=== PATIENT | female | born 1990 | race Caucasian/White ===

== ENCOUNTER 2017-03-30 04:28 | Inpatient (IN) | payer BC, MEDICAID ==
[2017-03-30] MEDS ORDERED: Nalbuphine* 20 MG/ML 1 ML VIAL IV ONE (06:27)
[2017-03-30] MEDS ORDERED: Promethazine INJ(RESTRICTED)* 25 MG/ML 1 ML VIAL IV ONE (06:28)
[2017-03-30] MEDS ORDERED: Nalbuphine* 20 MG/ML 1 ML VIAL ONE (06:29)
[2017-03-30] MEDS ORDERED: Promethazine INJ(RESTRICTED)* 25 MG/ML 1 ML VIAL ONE (06:29)
[2017-03-30 06:38] LABS: ABS Basophils 0.1 10^3/ul (0-0.2); ABS Eosinophils 0.1 10^3/ul (0-0.6); ABS Lymphocytes 1.4 10^3/ul (1.0-4.8); ABS Monocytes 1.1 10^3/ul (0-0.8); ABS Neutrophils 15.2 10^3/ul (1.5-7.7); ABS Nucleated RBC 0 10^3/ul; Eosinophil % 0.3 % (0-6); Hematocrit 36 % (35-47); Hemoglobin 11.7 g/dl (12.0-16.0); Lymphocyte % 7.7 % (25-47); Mean Corpuscular HGB Conc 33 g/dl (31-36); Mean Corpuscular Hemoglobin 26 pg (27-31); Mean Corpuscular Volume 80 fL (80-97); Mean Platelet Volume 9 um3 (7.4-10.4); Nucleated Red Blood Cells % 0.1; Platelet Count 353 10^3/ul (150-450); Red Blood Count 4.53 10^6/ul (4.0-5.4); Red Cell Distribution Width 15 % (10.5-15); White Blood Count 17.8 10^3/ul (3.5-10.8)
[2017-03-30] MEDS ORDERED: OBEPIDURAL* 250 ML EPIDURAL ONE (07:22)
[2017-03-30] MEDS ORDERED: EPHEDrine (Pressors)* 50 MG/ML VIAL IV PUSH PRN ×2 (07:50)
[2017-03-30] MEDS ORDERED: Phenylephrine IV* 40 MCG/ML 10 ML SYRINGE IV PUSH PRN ×2 (07:50)
[2017-03-30] MEDS ORDERED: Albuterol HFA INHALER* 8 gm MDI INH PRN (09:22)
[2017-03-30] MEDS ORDERED: Oxytocin in LR* 20 UNITS/1,000 ML BAG IVPB SCH ×2 (09:30→16:00)
[2017-03-30] MEDS ORDERED: Acetaminophen TAB* 325 MG PO PRN (15:04)
[2017-03-30] MEDS ORDERED: Glycerin ADULT SUPP PR PRN (15:04)
[2017-03-30] MEDS: Ibuprofen TAB* 600 MG PO PRN ×2 (18:02→18:07)
[2017-03-30] MEDS: Docusate CAP* 100 MG PO SCH (21:15)
[2017-03-31] MEDS: Ibuprofen TAB* 600 MG PO PRN ×4 (00:06→18:39)
[2017-03-31] MEDS: Witch Hazel PAD* JAR TOPICAL PRN (04:47)
[2017-03-31] MEDS: Dibucaine 1% 28.35 GM TUBE PR PRN (04:48)
[2017-03-31 06:45] LABS: ABS Basophils 0 10^3/ul (0-0.2); ABS Eosinophils 0.2 10^3/ul (0-0.6); ABS Lymphocytes 2.3 10^3/ul (1.0-4.8); ABS Monocytes 1.1 10^3/ul (0-0.8); ABS Neutrophils 11.1 10^3/ul (1.5-7.7); ABS Nucleated RBC 0 10^3/ul; Eosinophil % 1.1 % (0-6); Hematocrit 29 % (35-47); Hemoglobin 9.4 g/dl (12.0-16.0); Lymphocyte % 15.6 % (25-47); Mean Corpuscular HGB Conc 33 g/dl (31-36); Mean Corpuscular Hemoglobin 26 pg (27-31); Mean Corpuscular Volume 80 fL (80-97); Mean Platelet Volume 8 um3 (7.4-10.4); Nucleated Red Blood Cells % 0; Platelet Count 303 10^3/ul (150-450); Red Blood Count 3.59 10^6/ul (4.0-5.4); Red Cell Distribution Width 15 % (10.5-15); White Blood Count 14.8 10^3/ul (3.5-10.8)
[2017-03-31] MEDS: Docusate CAP* 100 MG PO SCH ×3 (08:00→21:13)
[2017-03-31] MEDS ORDERED: Amphetamine MIXED SALTS TAB* 15 MG PO SCH (09:00)
[2017-03-31] MEDS: Ferrous Gluconate TAB* 324 MG TAB PO SCH ×2 (09:19→21:13)
[2017-03-31] MEDS: Amphetamine MIXED SALT TAB* 10 MG TAB PO SCH (10:18)
[2017-03-31] MEDS: Simethicone TAB* 80 MG TAB.CHEW PO SCH ×2 (10:42→18:11)
[2017-03-31] MEDS: OBEPIDURAL* 250 ML EPIDURAL SCH (10:42)
[2017-03-31] MEDS ORDERED: Ammonia Inhalant* 1 EA AMP ONE (16:20)
[2017-04-01] MEDS: Ibuprofen TAB* 600 MG PO PRN ×2 (00:26→06:24)
[2017-04-01 08:03] VITALS: BP 133/89
--- NOTE | 2017-04-01 08:28 | PTEDU ---
Patient Name: SASKIA HICKS SASKIA HICKS selected video: Never Ever Shake a Baby to view on 04/01/2017 at 8:26:55 AM [facility]
--- NOTE | 2017-04-01 08:37 | PTEDU ---
Patient Name: SASKIA HICKS SASKIA HICKS selected video: BBOB: Nurturing Your Gorgeous &Growing Baby by to view on 04/01/2017 at 8:36:27 [id number]
[2017-04-01] MEDS: Ferrous Gluconate TAB* 324 MG TAB PO SCH (09:04)
[2017-04-01] MEDS: Amphetamine MIXED SALT TAB* 10 MG TAB PO SCH (09:04)
[2017-04-01] MEDS: Docusate CAP* 100 MG PO SCH (09:04)
[2017-04-01] MEDS: Dibucaine 1% 28.35 GM TUBE PR PRN (10:15)
[2017-04-01] MEDS: Witch Hazel PAD* JAR TOPICAL PRN (10:15)
== END 2017-04-01 11:09 | disposition home or self-care (01) | DRG 541 ==
LOC: MCHOBOUT 04:28 → MCHOB 05:04
PROVIDERS: ADMIT Midwife; ATTEND Midwife
PROC: 10E0XZZ Delivery of Products of Conception, External Approach (ICD-10-PCS; principal; 2017-03-30)
PROC: 4A1HXCZ Monitoring of Products of Conception, Cardiac Rate, External Approach (ICD-10-PCS; 2017-03-30)
PROC: 10D17Z9 Manual Extraction of Products of Conception, Retained, Via Natural or Artificial Opening (ICD-10-PCS; 2017-03-30)
DX: O99.344 Other mental disorders complicating childbirth (principal); O72.1 Other immediate postpartum hemorrhage; F98.8 Other specified behavioral and emotional disorders with onset usually occurring in childhood and adolescence; F42.9 Obsessive-compulsive disorder, unspecified; F32.9 Major depressive disorder, single episode, unspecified; F41.9 Anxiety disorder, unspecified; Z87.891 Personal history of nicotine dependence; Z88.2 Allergy status to sulfonamides; O69.81X0 Labor and delivery complicated by cord around neck, without compression, not applicable or unspecified; Z3A.39 39 weeks gestation of pregnancy; Z37.0 Single live birth; O90.81 Anemia of the puerperium; O75.89 Other specified complications of labor and delivery; K64.9 Unspecified hemorrhoids; O42.02 Full-term premature rupture of membranes, onset of labor within 24 hours of rupture; O71.82 Other specified trauma to perineum and vulva
CPT/HCPCS: 36415; 85025; 86850; 86900; 86901; A9270-GY; J2300; J2550

== ENCOUNTER 2017-11-30 13:36 | Emergency (ER) | payer BC, MEDICAID, OTHER ==
--- OUTSIDE RECORDS SUMMARY | 2017-11-30 15:42 | XMS REPORT | Continuity of Care Document ---
:1990 External Reference #:[id number] Author Name Cassandra Trinh Care Team Providers Name Role Phone Mattie Waters PA Care Team Information Calender Tender Unavailable Mattie Waters PA Primary Care Physician Unavailable Payers Type Date Identification Numbers Payment Provider Subscriber Policy Number: [id number] [facility] DENIA Patricia Sandoval PayID: [id number] [address] [place] [address] Advance Directives Description No Information Available Problems Description No Information Family History Description No Information Available Social History Type Date Description Comments Sex Unknown Tobacco Use Start: Unknown currently smokes 1/2 Pack Daily ETOH Use Current Alcohol Use - 1-3 Days A Week. Recreational Drug Use Used Recreational Drugs In The Past Allergies, Adverse Reactions, Alerts Date Description Reaction Status Severity Comments 11/10/2017 Bactrim Active Medications Medication Date Status Form Strength Qnty SIG Indications Ordering Provider Klonopin Active Tablets 0.5mg 1 by mouth Unknown 00 every day Adderall Active Tablets 30mg one tab in Unknown 00 the afternoon Immunizations Description No Information Available Vital Signs Date Vital Result Comment 11/10/2017 3:58pm Weight 210.00 lb Height 65 inches 5'5" BMI (Body Mass Index) 34.9 kg/m2 BP Systolic 139 mmHg BP Diastolic 81 mmHg Heart Rate 95 /min O2 % BldC Oximetry 97 % Body Temperature 97.9 F Pain Level 0 Results Description No Information Available Procedures Description No Information Available Encounters Description No Information Available Plan of Treatment No Information Available
--- NOTE | 2017-11-30 15:45 | UC ---
Respiratory Complaint HPI - HPI Summary HPI Summary: Pt c/o URI symptoms that began 2 weeks ago. Pt reports that nasal congestion, and other URI symptoms have improved but continues to have cough and "chest burning" that began 1 day ago. - History of Current Complaint Stated Complaint: SINUSES,COUGH Time Seen by Provider: 11/30/17 15:41 Hx Obtained From: Patient Hx Last Menstrual Period: 11/17/13 ?: No Onset/Duration: Gradual Onset, Lasting Weeks, Still Present Timing: Intermittent Episodes Severity Initially: Mild Severity Currently: Mild Character: Cough: Nonproductive Aggravating Factors: Deep Breaths, Recumbent Position Alleviating Factors: Nothing Associated Signs And Symptoms: Positive: URI - Risk Factors Cardiac Risk Factors: Negative Pseudomonas Risk Factors: Negative - Allergies/Home Medications Allergies/Adverse Reactions: Allergies Allergy/AdvReac Type Severity Reaction Status Date / Time sulfamethoxazole Allergy Severe Anaphylatic Verified 11/30/17 15:58 [From Bactrim] Shock trimethoprim [From Bactrim] Allergy Severe Anaphylatic Verified 11/30/17 15:58 Shock Home Medications: Home Medications clonazePAM TAB(*) [KlonoPIN TAB(*)] 0.5 mg PO TID PRN 11/30/17 [History Confirmed 11/30/17] PMH/Surg Hx/FS Hx/Imm Hx Previously Healthy: Yes Respiratory History: Asthma - as achild - Surgical History Surgical History: Yes Surgery Procedure, Year, and Place: 4 RIGHT KNEE SURGERIES - Family History Known Family History: Positive: Cardiac Disease - Social History Occupation: Works From/At Home Lives: With Family Alcohol Use: None Substance Use Type: Prescribed Substance Use Comment - Amount & Last Used: adderall for ADD. last taken 2/3 in the AM Smoking Status (MU): Former Smoker Amount Used/How Often: 2 CIGS PER WK Length of Time of Smoking/Using Tobacco: 4 YRS Have You Smoked in the Last Year: Yes - Immunization History Most Recent Influenza Vaccination: 01/21/2017 Most Recent Pneumonia Vaccination: n/a Vaccination Up to Date: No Review of Systems Constitutional: Fatigue Skin: Negative Eyes: Negative ENT: Negative Respiratory: Cough Cardiovascular: Negative Gastrointestinal: Negative Genitourinary: Negative Motor: Negative Neurovascular: Negative Musculoskeletal: Negative Neurological: Negative Psychological: Negative Is Patient Immunocompromised?: No All Other Systems Reviewed And Are Negative: Yes Physical Exam Triage Information Reviewed: Yes Appearance: Well-Appearing Vital Signs Reviewed: Yes Eye Exam: Normal ENT Exam: Normal Dental Exam: Normal Neck exam: Normal Respiratory Exam: Normal Cardiovascular Exam: Normal Musculoskeletal Exam: Normal Neurological Exam: Normal Psychological Exam: Normal Skin Exam: Normal Respiratory Course/Dx - Differential Dx/Diagnosis Differential Diagnosis/HQI/PQRI: Bronchitis, Influenza Provider Diagnoses: post viral cough Discharge - Sign-Out/Discharge Documenting (check all that apply): Patient Departure All imaging exams completed and their final reports reviewed: No Studies - Discharge Plan Condition: Stable Disposition: HOME Prescriptions: Albuterol HFA INHALER* [Ventolin HFA Inhaler*] 2 puff INH Q4H PRN #1 mdi PRN Reason: Sob/Wheezing Benzonatate CAP* [Tessalon 100 MG CAP*] 100 mg PO Q8H PRN #30 cap PRN Reason: Cough predniSONE TAB* [Deltasone 20 MG TAB*] 20 mg PO DAILY #4 tab Patient Education Materials: Viral Syndrome (ED), Acute Cough (ED) Referrals: Lauro Stenier DO [Primary Care Provider] - If Needed - Billing Disposition and Condition Condition: STABLE Disposition: Home
[2017-11-30 15:58] VITALS: BP 129/78
== END 2017-11-30 16:04 | disposition home or self-care (01) ==
LOC: UCCORT 13:36
DX: R05 Cough (principal); Z88.1 Allergy status to other antibiotic agents
CPT/HCPCS: 99212; G0463

== ENCOUNTER 2018-04-05 18:11 | Emergency (ER) | payer OTHER ==
[2018-04-05 18:36] VITALS: BP 120/75
--- NOTE | 2018-04-05 18:49 | UC ---
Respiratory Complaint HPI - HPI Summary HPI Summary: C/o cough congestion with painful deep breaths. fevers. - History of Current Complaint Chief Complaint: UCGeneralIllness Stated Complaint: COUGH/TEMP Time Seen by Provider: 04/05/18 18:40 Hx Obtained From: Patient Hx Last Menstrual Period: [id number] ?: No Onset/Duration: Gradual Onset, Lasting Days - 2, Worse Since - onset Timing: Constant Severity Initially: Mild Severity Currently: Moderate Pain Intensity: 6 Character: Cough: Productive Associated Signs And Symptoms: Positive: Fever, Chills, Pleuritic Chest Pain, URI, Nasal Congestion. Negative: Sinus Discomfort Related History: Seasonal Allergies - Allergies/Home Medications Allergies/Adverse Reactions: Allergies Allergy/AdvReac Type Severity Reaction Status Date / Time sulfamethoxazole Allergy Severe Anaphylatic Verified 04/05/18 18:36 [From Bactrim] Shock trimethoprim [From Bactrim] Allergy Severe Anaphylatic Verified 04/05/18 18:36 Shock Home Medications: Home Medications Norethindrone [Deblitane] 0.35 mg PO DAILY 04/05/18 [History Confirmed 04/05/18] PMH/Surg Hx/FS Hx/Imm Hx Respiratory History: Asthma - Surgical History Surgical History: Yes Surgery Procedure, Year, and Place: 4 RIGHT KNEE SURGERIES, T&A 2018 - Family History Known Family History: Positive: Cardiac Disease - Social History Occupation: Employed Full-time Lives: With Family Alcohol Use: Weekly Substance Use Type: None Substance Use Comment - Amount & Last Used: adderall for ADD. last taken 2/3 in the AM Smoking Status (MU): Current Some Day Smoker Amount Used/How Often: 2 CIGS PER WK Length of Time of Smoking/Using Tobacco: 4 YRS Have You Smoked in the Last Year: Yes - Immunization History Most Recent Influenza Vaccination: 01/21/2017 Most Recent Pneumonia Vaccination: n/a Vaccination Up to Date: No Review of Systems All Other Systems Reviewed And Are Negative: Yes Constitutional: Positive: Fever ENT: Positive: Nasal Discharge Respiratory: Positive: Cough Musculoskeletal: Positive: Myalgia Neurological: Positive: Headache Is Patient Immunocompromised?: No Physical Exam Triage Information Reviewed: Yes Appearance: No Pain Distress, Ill-Appearing, Obese Vital Signs: Initial Vital Signs Temp 99.4 F 04/05/18 18:30 Pulse 100 02/10/19 18:30 Resp 20 04/05/18 18:30 BP 120/75 04/05/18 18:30 Pulse Ox 97 04/05/18 18:30 Vital Signs Reviewed: Yes Eyes: Positive: Conjunctiva Inflamed ENT: Positive: Pharynx normal, TMs normal Neck exam: Normal Respiratory: Positive: Lungs clear, Wheezing - expiratory wheeze with cough Cardiovascular Exam: Normal Musculoskeletal Exam: Normal Neurological Exam: Normal Psychological Exam: Normal Skin Exam: Normal UC Diagnostic Evaluation - Laboratory O2 Sat by Pulse Oximetry: 97 Diagnostic Studies Comment: Rapid flu Positive A Respiratory Course/Dx - Differential Dx/Diagnosis Differential Diagnosis/HQI/PQRI: Asthma, Influenza, Lower Resp Infection, Sinusitis Provider Diagnosis: Influenza A, Asthma exacerbation Discharge - Sign-Out/Discharge Documenting (check all that apply): Patient Departure All imaging exams completed and their final reports reviewed: No Studies - Discharge Plan Condition: Stable Disposition: HOME Prescriptions: Oseltamivir CAP* [Tamiflu CAP*] 75 mg PO BID #10 cap predniSONE TAB* [Deltasone 20 MG TAB*] 60 mg PO DAILY #18 tab Patient Education Materials: Influenza (ED), Oseltamivir (By mouth), Asthma (ED ), Prednisone (By mouth) Forms: *Work Release Referrals: Lauro Steiner DO [Primary Care Provider] - - Billing Disposition and Condition Condition: STABLE Disposition: Home
[2018-04-05] MEDS ORDERED: predniSONE TAB* 20 MG PO ONE (19:15)
[2018-04-05] MEDS ORDERED: Oseltamivir CAP* 75 MG CAP PO ONE (19:15)
[2018-04-06 07:34] LABS: Influenza A Molecular POSITIVE (Negative)
== END 2018-04-05 19:45 | disposition home or self-care (01) ==
LOC: UCCORT 18:11
DX: J45.901 Unspecified asthma with (acute) exacerbation (principal); J10.1 Influenza due to other identified influenza virus with other respiratory manifestations; F17.210 Nicotine dependence, cigarettes, uncomplicated; Z88.2 Allergy status to sulfonamides; Z88.1 Allergy status to other antibiotic agents
CPT/HCPCS: 99212; A9270-GY; G0463; J7512

== ENCOUNTER 2018-04-15 12:13 | Emergency (ER) | payer OTHER ==
[2018-04-15 13:01] VITALS: BP 132/92
--- NOTE | 2018-04-15 13:45 | UC ---
Respiratory Complaint HPI - HPI Summary HPI Summary: Pt c/o cough X 10 days. Pt works at [employer] and physician at her place of work requested that she be tested for pertussis. - History of Current Complaint Chief Complaint: UCRespiratory Stated Complaint: SEVERE COUGH Time Seen by Provider: 04/15/18 13:29 Hx Obtained From: Patient Hx Last Menstrual Period: 03/15/18 ?: No Onset/Duration: Gradual Onset, Lasting Days, Still Present Timing: Intermittent Episodes Severity Initially: Mild Severity Currently: Moderate Pain Intensity: 9 Character: Cough: Productive Aggravating Factors: Exertion, Deep Breaths, Recumbent Position Alleviating Factors: Nothing Associated Signs And Symptoms: Positive: Wheezing, URI, Nasal Congestion - Risk Factors Pulmonary Embolism Risk Factors: Negative Cardiac Risk Factors: Negative Pseudomonas Risk Factors: Negative Tuberculosis Risk Factors: Negative - Allergies/Home Medications Allergies/Adverse Reactions: Allergies Allergy/AdvReac Type Severity Reaction Status Date / Time sulfamethoxazole Allergy Severe Anaphylatic Verified 04/15/18 13:01 [From Bactrim] Shock trimethoprim [From Bactrim] Allergy Severe Anaphylatic Verified 04/15/18 13:01 Shock Home Medications: Home Medications Omeprazole 1 tab PO DAILY 04/15/18 [History Confirmed 04/15/18] PMH/Surg Hx/FS Hx/Imm Hx Previously Healthy: Yes Respiratory History: Bronchitis, Pneumonia - Surgical History Surgical History: Yes Surgery Procedure, Year, and Place: 4 RIGHT KNEE SURGERIES, T&A 2018 - Family History Known Family History: Positive: Cardiac Disease - Social History Occupation: Employed Full-time Lives: With Family Alcohol Use: Weekly Substance Use Type: None Substance Use Comment - Amount & Last Used: adderall for ADD. last taken 2/3 in the AM Smoking Status (MU): Current Some Day Smoker Amount Used/How Often: 2 CIGS PER WK Length of Time of Smoking/Using Tobacco: 4 YRS Have You Smoked in the Last Year: Yes - Immunization History Most Recent Influenza Vaccination: 01/21/2017 Most Recent Pneumonia Vaccination: n/a Vaccination Up to Date: No Review of Systems All Other Systems Reviewed And Are Negative: Yes Constitutional: Positive: Chills, Fatigue Skin: Positive: Negative Eyes: Positive: Negative ENT: Positive: Sinus Congestion Respiratory: Positive: Shortness Of Breath, Cough Cardiovascular: Positive: Negative Gastrointestinal: Positive: Negative Genitourinary: Positive: Negative Motor: Positive: Negative Neurovascular: Positive: Negative Musculoskeletal: Positive: Myalgia Neurological: Positive: Negative Psychological: Positive: Negative Is Patient Immunocompromised?: No Physical Exam Triage Information Reviewed: Yes Appearance: Well-Appearing Vital Signs: Initial Vital Signs Temp 98.9 F 04/15/18 12:57 Pulse 110 04/15/18 12:57 Resp 20 04/15/18 12:57 BP 132/92 04/15/18 12:57 Pulse Ox 100 04/15/18 12:57 Vital Signs Reviewed: Yes Eye Exam: Normal ENT: Positive: Nasal congestion Dental Exam: Normal Neck exam: Normal Respiratory: Positive: Decreased breath sounds, Wheezing Cardiovascular Exam: Normal Musculoskeletal Exam: Normal Neurological Exam: Normal Psychological Exam: Normal Skin Exam: Normal UC Diagnostic Evaluation - Laboratory O2 Sat by Pulse Oximetry: 100 Respiratory Course/Dx - Differential Dx/Diagnosis Differential Diagnosis/HQI/PQRI: Bronchitis, Influenza Provider Diagnosis: Bronchitis Discharge - Sign-Out/Discharge Documenting (check all that apply): Patient Departure All imaging exams completed and their final reports reviewed: No Studies - Discharge Plan Condition: Stable Disposition: HOME Prescriptions: Azithromycin TAB* [Zithromax TAB (Z-CASIMIRO) 250 mg #6 tabs] 2 tab PO .TODAY, THEN 1 DAILY #1 casimiro Benzonatate CAP* [Tessalon 100 MG CAP*] 200 mg PO Q8H PRN #30 cap PRN Reason: Cough Codeine Phosphate/Guaifenesin [Codeine-Guaifen 10-100 mg/5 ml] 5 ml PO BEDTIME PRN #15 ml MDD 5 ml PRN Reason: Cough predniSONE TAB* [Deltasone 10 MG TAB*] 30 mg PO DAILY #12 tab Patient Education Materials: Acute Bronchitis (ED) Forms: *Work Release Referrals: Lauro Steiner DO [Primary Care Provider] - - Billing Disposition and Condition Condition: STABLE Disposition: Home
[2018-04-17 18:01] LABS: Bordetella pertussis PCR Negative
== END 2018-04-15 14:10 | disposition home or self-care (01) ==
LOC: UCEAST 12:13
DX: J40 Bronchitis, not specified as acute or chronic (principal); F17.210 Nicotine dependence, cigarettes, uncomplicated; Z87.01 Personal history of pneumonia (recurrent); Z88.1 Allergy status to other antibiotic agents; Z88.2 Allergy status to sulfonamides
CPT/HCPCS: 87798; 99212; G0463

== ENCOUNTER 2018-10-26 09:36 | Emergency (ER) | payer OTHER ==
[2018-10-26 10:45] VITALS: BP 123/82
--- NOTE | 2018-10-26 10:57 | UC ---
Respiratory Complaint HPI - HPI Summary HPI Summary: Pt presents with c/o chest congestion, cough, nasal congestion, and PND X 3 days. Denies fever.Has hx of asthma has used rescue INH "occasionally" but states that it does not "do anything" . - History of Current Complaint Chief Complaint: UCRespiratory Stated Complaint: COUGH SINUS/CHEST CONGESTION Time Seen by Provider: 10/26/18 10:45 Hx Obtained From: Patient Hx Last Menstrual Period: 10/01/18 ?: No Onset/Duration: Sudden Onset, Lasting Days, Still Present Timing: Constant Severity Initially: Mild Severity Currently: Moderate Pain Intensity: 0 Character: Cough: Productive Aggravating Factors: Exertion, Deep Breaths, Recumbent Position Alleviating Factors: Nothing Associated Signs And Symptoms: Positive: Wheezing, URI, Nasal Congestion - Risk Factors Pulmonary Embolism Risk Factors: Negative Cardiac Risk Factors: Negative Pseudomonas Risk Factors: Chronic Lung Disease - asthma Tuberculosis Risk Factors: Negative - Allergies/Home Medications Allergies/Adverse Reactions: Allergies Allergy/AdvReac Type Severity Reaction Status Date / Time sulfamethoxazole Allergy Severe Anaphylatic Verified 10/26/18 10:36 [From Bactrim] Shock trimethoprim [From Bactrim] Allergy Severe Anaphylatic Verified 10/26/18 10:36 Shock Home Medications: Home Medications Cephalexin CAP* [Keflex 500 CAP*] 500 mg PO TID 10/26/18 [History Confirmed 04/14] PMH/Surg Hx/FS Hx/Imm Hx Previously Healthy: Yes Respiratory History: Asthma - Surgical History Surgical History: Yes Surgery Procedure, Year, and Place: 4 RIGHT KNEE SURGERIES, T&A 2018 - Family History Known Family History: Positive: Cardiac Disease - Social History Occupation: Employed Full-time Lives: With Family Alcohol Use: Occasionally Substance Use Type: Prescribed Substance Use Comment - Amount & Last Used: adderall for ADD. Smoking Status (MU): Light Every Day Tobacco Smoker Type: Cigarettes Amount Used/How Often: less than 1/2 PPD Length of Time of Smoking/Using Tobacco: 4 YRS Have You Smoked in the Last Year: Yes - Immunization History Most Recent Influenza Vaccination: 01/21/2017 Most Recent Pneumonia Vaccination: n/a Vaccination Up to Date: No Review of Systems All Other Systems Reviewed And Are Negative: Yes Constitutional: Positive: Fatigue Skin: Positive: Negative Eyes: Positive: Negative ENT: Positive: Sinus Congestion Respiratory: Positive: Cough, Other - wheezing Cardiovascular: Positive: Negative Gastrointestinal: Positive: Negative Genitourinary: Positive: Negative Motor: Positive: Negative Neurovascular: Positive: Negative Musculoskeletal: Positive: Negative Neurological: Positive: Negative Psychological: Positive: Negative Is Patient Immunocompromised?: No Physical Exam Triage Information Reviewed: Yes Appearance: Well-Appearing Vital Signs: Initial Vital Signs Temp 98.8 F 10/26/18 10:38 Pulse 87 10/26/18 10:38 Resp 16 10/26/18 10:38 BP 123/82 10/26/18 10:38 Pulse Ox 98 10/26/18 10:38 Vital Signs Reviewed: Yes Eye Exam: Normal ENT: Positive: Nasal congestion Dental Exam: Normal Neck exam: Normal Respiratory: Positive: Wheezing Cardiovascular Exam: Normal Musculoskeletal Exam: Normal Neurological Exam: Normal Psychological Exam: Normal Skin Exam: Normal Respiratory Course/Dx - Differential Dx/Diagnosis Differential Diagnosis/HQI/PQRI: Bronchitis, Exacerbation Of COPD Provider Diagnosis: Bronchitis Discharge ED - Sign-Out/Discharge Documenting (check all that apply): Patient Departure All imaging exams completed and their final reports reviewed: No Studies - Discharge Plan Condition: Stable Disposition: HOME Prescriptions: Benzonatate CAP* [Tessalon 100 MG CAP*] 200 mg PO Q8H PRN #30 cap PRN Reason: Cough Guaifenesin/Pseudoephedrne HCl [Mucinex D ER 600-60 mg Tablet] 1 each PO Q12H # 14 tab.er.12h predniSONE TAB* [Deltasone 10 MG TAB*] 30 mg PO DAILY #18 tab Patient Education Materials: Acute Bronchitis (ED) Referrals: Mattie Waters PA [Primary Care Provider] - If Needed Additional Instructions: Please follow up with your PCP as needed. Please begin to use the antibiotics as prescribed by your PCP. - Billing Disposition and Condition Condition: STABLE Disposition: Home
== END 2018-10-26 11:09 | disposition home or self-care (01) ==
LOC: UCCORT 09:36
DX: J40 Bronchitis, not specified as acute or chronic (principal); Z88.1 Allergy status to other antibiotic agents; F17.210 Nicotine dependence, cigarettes, uncomplicated
CPT/HCPCS: 99212; G0463